=== PATIENT | male | born 1955 | race Caucasian/White ===

== ENCOUNTER 2022-07-05 12:56 | Inpatient (IN) | payer MEDICARE, OTHER ==
[~2022-07-05] VITALS: Ht 170.2 cm; Wt 63.5 kg
[2022-07-05] MEDS ORDERED: ATROPINE SULFATE 1MG/ML VIAL IV ONE (13:15)
[2022-07-05] MEDS ORDERED: CALCIUM GLUCONATE 100MG/ML 10ML VIAL IV ONE (13:15)
[2022-07-05] MEDS ORDERED: LORAZEPAM 2MG/ML CPJ IV ONE (13:15)
[2022-07-05] MEDS ORDERED: LEVETIRACETAM 1000MG PREMIX 100 ML IV ONE (13:30)
[2022-07-05 14:59] LABS: BASOPHILS % 0.1 % (0.0-2.0); EOSINOPHILS % 0.4 % (0.0-5.0); HEMATOCRIT. 26.4 % (42.0-52.0); HEMOGLOBIN. 8.6 g/dL (14.0-18.0); LYMPHOCYTES % 8.4 % (20.0-50.0); MEAN CORPUSCULAR HEMOGLOBIN 30.8 pg (28.0-32.0); MEAN CORPUSCULAR VOLUME 94.4 fL (80.0-94.0); MEAN PLATELET VOLUME 10.8 fl (7.4-10.4); MONOCYTES % 6.6 % (2.0-8.0); NEUTROPHILS % 84.5 % (40.0-76.0); PLATELET 144 x1000/uL (130-400)
[2022-07-05 15:13] LABS: CHLORIDE 112 mEq/L (98-107)
[2022-07-05 15:38] LABS: PARTIAL THROMBOPLASTIN TIME 28.7 sec (23.4-31.0); PROTHROMBIN TIME 10.9 sec (9.6-11.0)
[2022-07-05] MEDS ORDERED: DEXTROSE 50% WATER 50ML SYRINGE IV ONE (15:45)
[2022-07-05] MEDS ORDERED: INSULIN REGULAR (HUMULIN R) 300UNITS/3ML VIAL IV ONE (15:45)
[2022-07-05] MEDS ORDERED: SODIUM POLYSTYRENE SULFONATE 15 G/60 ML BOT PO ONE (15:45)
[2022-07-05] MEDS ORDERED: ASPIRIN 325MG EC TABLET PO ONE (15:45)
[2022-07-05] MEDS ORDERED: ALBUTEROL (0.083%) 2.5MG/3ML NEB HHN ONE (15:45)
[2022-07-05 16:02] LABS: ETHANOL BLOOD < 10 mg/dL
[2022-07-05 16:03] LABS: DIGOXIN 0.1 ng/mL (0.9-2.0)
[2022-07-05] MEDS ORDERED: HYDROCODONE/ACETAMINOPHEN 5/325MG TABLET PO PRN (16:15)
[2022-07-05] MEDS ORDERED: ACETAMINOPHEN 325MG TABLET PO PRN ×2 (16:15)
[2022-07-05] MEDS ORDERED: ONDANSETRON HCL 4MG/2ML INJ IV PRN (16:15)
[2022-07-05] MEDS ORDERED: GUAIFENESIN 200MG/10ML SUGAR FREE UDC PO PRN (16:15)
[2022-07-05] MEDS ORDERED: IPRATROPIUM/ALBUTEROL 0.5-3(2.5)MG/3ML NEB NEB PRN (16:15)
[2022-07-05] MEDS ORDERED: DEXTROSE 50% WATER 50ML SYRINGE IV PRN (16:15)
[2022-07-05] MEDS ORDERED: MAGNESIUM/ALUMINUM HYDROXIDE/SIMETHICONE 30ML UDC PO PRN (16:15)
[2022-07-05] MEDS: BLOOD SUGAR DIAGNOSTIC STRIP TEST SCH ×2 (17:53→21:00)
[2022-07-05] MEDS: INSULIN LISPRO 100 UNITS/ML SUBCUT SCH ×2 (18:20→21:00)
[2022-07-05 18:32] LABS: CLARITY URINE CLOUDY (CLEAR); COLOR URINE DARK YELLOW (YELLOW); KETONES URINE TRACE (NEGATIVE); LEUKOCYTE ESTERASE URINE 1+ (NEGATIVE); NITRITE URINE NEGATIVE (NEGATIVE); OCCULT BLOOD URINE NEGATIVE (NEGATIVE); PROTEIN URINE 3+ (NEGATIVE); SPECIFIC GRAVITY URINE 1.017 (1.005-1.030); UROBILINOGEN URINE 0.2 E.U./dL (0.2-1.0)
[2022-07-05] MEDS ORDERED: NOREPINEPHRINE 8MG/250ML PMX 250 ML IV PRN (19:15)
[2022-07-05] MEDS ORDERED: NOREPINEPHRINE 8 MG in DEXTROSE 5% WATER 250 ML IV PRN ×2 (19:30→20:00)
[2022-07-05 20:30] VITALS: BP 159/63
[2022-07-05 21:00] VITALS: BP 220/77
[2022-07-05 21:12] LABS: HEPATITIS B SURFACE ANTIGEN NEGATIVE
[2022-07-05 21:14] VITALS: BP 142/59
[2022-07-05 22:48] VITALS: BP 143/59
[2022-07-05] MEDS: ENOXAPARIN 30MG/0.3ML SYR SUBCUT SCH (23:15)
[2022-07-06 05:40] LABS: PHOSPHORUS 5.5 mg/dL (2.5-4.9)
[2022-07-06] MEDS: BLOOD SUGAR DIAGNOSTIC STRIP TEST SCH ×4 (06:30→21:00)
[2022-07-06] MEDS: INSULIN LISPRO 100 UNITS/ML SUBCUT SCH ×4 (07:00→21:00)
[2022-07-06] MEDS ORDERED: NALOXONE HCL 0.4MG/ML VIAL IV PRN (08:45)
[2022-07-06 10:05] LABS: BASOPHILS % 0.5 % (0.0-2.0); EOSINOPHILS % 1.7 % (0.0-5.0); HEMATOCRIT. 21.7 % (42.0-52.0); HEMOGLOBIN. 7.5 g/dL (14.0-18.0); LYMPHOCYTES % 11.1 % (20.0-50.0); MEAN CORPUSCULAR HEMOGLOBIN 30.6 pg (28.0-32.0); MEAN CORPUSCULAR VOLUME 89.3 fL (80.0-94.0); MEAN PLATELET VOLUME 10.5 fl (7.4-10.4); MONOCYTES % 13.8 % (2.0-8.0); NEUTROPHILS % 72.9 % (40.0-76.0); PLATELET 109 x1000/uL (130-400); RED BLOOD CELL COUNT 2.43 mill/uL (4.7-6.1); RED CELL DISTRIBUTION WIDTH 14.4 % (11.6-14.6)
[2022-07-06 15:00] VITALS: BP 143/54
[2022-07-06 16:00] VITALS: BP 143/54
[2022-07-06] MEDS ORDERED: FURO40TA5 MT (18:05)
[2022-07-06] MEDS ORDERED: VALS80TA30 MT (18:05)
[2022-07-06] MEDS ORDERED: HYDR100T26 MT (18:05)
[2022-07-06] MEDS ORDERED: CARV3.1242 MT (18:05)
[2022-07-06] MEDS ORDERED: TAMS-11 MT (18:05)
[2022-07-06] MEDS ORDERED: NIFE-33 MT (18:05)
[2022-07-06 19:03] LABS: CREATINE KINASE MB FRACTION 4.6 ng/mL (0.5-3.6)
[2022-07-06 19:10] LABS: T4 FREE 1.1 ng/dL (0.76-1.46)
[2022-07-06 20:00] VITALS: BP 142/54
[2022-07-06] MEDS: ENOXAPARIN 30MG/0.3ML SYR SUBCUT SCH (21:03)
[2022-07-06] MEDS: CARVEDILOL 3.125 MG TABLET PO SCH (21:04)
[2022-07-06] MEDS: TAMSULOSIN HCL 0.4MG SR CAPSULE PO SCH (21:05)
[2022-07-06] MEDS: EPOETIN ALFA-EPBX 4,000 UNIT/ML VIAL SUBCUT SCH (23:27)
[2022-07-07] VITALS: BP 149/66
[2022-07-07 00:44] LABS: CREATINE KINASE MB FRACTION 4.9 ng/mL (0.5-3.6)
[2022-07-07 04:00] VITALS: BP 155/82
[2022-07-07] MEDS: INSULIN LISPRO 100 UNITS/ML SUBCUT SCH ×4 (06:07→20:12)
[2022-07-07] MEDS: BLOOD SUGAR DIAGNOSTIC STRIP TEST SCH ×4 (06:07→20:12)
[2022-07-07 07:55] LABS: BASOPHILS % 0.5 % (0.0-2.0); EOSINOPHILS % 4.5 % (0.0-5.0); HEMATOCRIT. 22.2 % (42.0-52.0); HEMOGLOBIN. 7.6 g/dL (14.0-18.0); LYMPHOCYTES % 10.2 % (20.0-50.0); MEAN CORPUSCULAR HEMOGLOBIN 30.9 pg (28.0-32.0); MEAN CORPUSCULAR VOLUME 89.8 fL (80.0-94.0); MEAN PLATELET VOLUME 10.4 fl (7.4-10.4); MONOCYTES % 11.1 % (2.0-8.0); NEUTROPHILS % 73.7 % (40.0-76.0); PLATELET 117 x1000/uL (130-400); RED BLOOD CELL COUNT 2.47 mill/uL (4.7-6.1); RED CELL DISTRIBUTION WIDTH 14.4 % (11.6-14.6)
[2022-07-07 08:00] VITALS: BP 149/90
[2022-07-07 08:58] LABS: CREATINE KINASE MB FRACTION 5.6 ng/mL (0.5-3.6); PHOSPHORUS 5.7 mg/dL (2.5-4.9)
[2022-07-07 09:11] LABS: VITAMIN B12 SERUM 642 pg/mL (211-911)
[2022-07-07] MEDS: TAMSULOSIN HCL 0.4MG SR CAPSULE PO SCH (09:28)
[2022-07-07] MEDS: CARVEDILOL 3.125 MG TABLET PO SCH ×2 (09:28→20:32)
[2022-07-07 12:00] VITALS: BP 171/77
[2022-07-07 12:21] LABS: FOLIC ACID (FOLATE) SERUM > 20.00 ng/mL (>5.38)
[2022-07-07 16:00] VITALS: BP 159/71
[2022-07-07 20:00] VITALS: BP 159/64
[2022-07-07] MEDS: ENOXAPARIN 30MG/0.3ML SYR SUBCUT SCH (20:27)
[2022-07-07 20:42] LABS: HEMATOCRIT 23.4 % (42.0-52.0); HEMOGLOBIN 7.9 g/dL (14.0-18.0); MEAN CORPUSCULAR HEMOGLOBIN 30.2 pg (28.0-32.0); MEAN CORPUSCULAR VOLUME 89.8 fL (80.0-94.0); PLATELET 130 x1000/uL (130-400); RED BLOOD CELL COUNT 2.61 mill/uL (4.7-6.1); RED CELL DISTRIBUTION WIDTH 14.6 % (11.6-14.6)
[2022-07-07] MEDS ORDERED: ALBUTEROL (0.083%) 2.5MG/3ML NEB HHN PRN (21:45)
[2022-07-07] MEDS ORDERED: IPRATROPIUM BROMIDE (0.02%) 0.5MG/2.5ML NEB HHN PRN (21:45)
[2022-07-08] VITALS: BP 117/75
[2022-07-08 04:30] VITALS: BP 160/73
[2022-07-08] MEDS: BLOOD SUGAR DIAGNOSTIC STRIP TEST SCH ×4 (05:42→21:00)
[2022-07-08] MEDS: INSULIN LISPRO 100 UNITS/ML SUBCUT SCH ×4 (06:19→21:23)
[2022-07-08 08:00] VITALS: BP 185/77
[2022-07-08] MEDS: TAMSULOSIN HCL 0.4MG SR CAPSULE PO SCH (09:20)
[2022-07-08] MEDS: CARVEDILOL 3.125 MG TABLET PO SCH ×2 (09:21→21:00)
[2022-07-08] MEDS: CLONIDINE 0.1MG TABLET PO PRN ×2 (09:21→17:01)
[2022-07-08 11:45] VITALS: BP 178/78
[2022-07-08 16:00] VITALS: BP 176/78
[2022-07-08] MEDS: NIFEDIPINE XL 30MG TAB PO SCH (19:02)
[2022-07-08 20:00] VITALS: BP 147/82
[2022-07-08] MEDS: EPOETIN ALFA-EPBX 4,000 UNIT/ML VIAL SUBCUT SCH (21:21)
[2022-07-08] MEDS: ENOXAPARIN 30MG/0.3ML SYR SUBCUT SCH (21:22)
[2022-07-09] VITALS: BP 148/71
[2022-07-09 04:00] VITALS: BP 150/76
[2022-07-09] MEDS: BLOOD SUGAR DIAGNOSTIC STRIP TEST SCH ×2 (06:40→11:48)
[2022-07-09] MEDS: INSULIN LISPRO 100 UNITS/ML SUBCUT SCH ×2 (06:44→12:45)
[2022-07-09 08:00] VITALS: BP 129/60
[2022-07-09] MEDS: CARVEDILOL 3.125 MG TABLET PO SCH (08:40)
[2022-07-09] MEDS: NIFEDIPINE XL 30MG TAB PO SCH (08:40)
[2022-07-09] MEDS: TAMSULOSIN HCL 0.4MG SR CAPSULE PO SCH (08:40)
[2022-07-09] MEDS ORDERED: NIFE-33 PO (10:20)
[2022-07-09] MEDS ORDERED: TAMS-11 PO (10:20)
[2022-07-09] MEDS ORDERED: CARV3.1242 PO (10:20)
[2022-07-09] MEDS ORDERED: VALS40TA11 PO ×2 (10:20)
[2022-07-09 12:00] VITALS: BP 121/62
[2022-07-09 13:26] VITALS: BP 121/62
[2022-07-09 16:00] VITALS: BP 132/78
[2022-07-09] MEDS ORDERED: HYDR100T26 PO (17:45)
== END 2022-07-09 16:35 | disposition home or self-care (01) | DRG 640 ==
LOC: ER 12:56 → SUPCPDRO 15:56 → MICUSO 16:00 → 7EST 07-06 15:13
PROVIDERS: ADMIT Internal Medicine; ATTEND Internal Medicine
PROC: 06HY33Z Insertion of Infusion Device into Lower Vein, Percutaneous Approach (ICD-10-PCS; principal; 2022-07-05)
PROC: B54BZZA Ultrasonography of Right Lower Extremity Veins, Guidance (ICD-10-PCS; 2022-07-05)
PROC: 5A1D70Z Performance of Urinary Filtration, Intermittent, Less than 6 Hours Per Day (ICD-10-PCS; 2022-07-05)
DX: E87.5 Hyperkalemia (principal); I21.4 Non-ST elevation (NSTEMI) myocardial infarction; N18.6 End stage renal disease; I13.2 Hypertensive heart and chronic kidney disease with heart failure and with stage 5 chronic kidney disease, or end stage renal disease; N17.9 Acute kidney failure, unspecified; N39.0 Urinary tract infection, site not specified; E87.20 Acidosis, unspecified; D63.1 Anemia in chronic kidney disease; I50.9 Heart failure, unspecified; R00.1 Bradycardia, unspecified; Z79.899 Other long term (current) drug therapy; Z87.891 Personal history of nicotine dependence; M54.2 Cervicalgia; M54.50 Low back pain, unspecified
CPT/HCPCS: 36415; 71045; 76770; 80048; 80053; 80061; 80162; 80320; 81003; 82550; 82553; 82607; 82746; 82962; 83036; 83605; 83735; 83880; 84100; 84439; 84443; 84484; 85025; 85027; 86705; 86709; 86803; 86850; 86900; 87340; 93005; 93306; 94644; 99291; J0461; J0610; J0885; J1650; J1815; J1953; J2060; J2405; G0480